=== PATIENT | female | born 1945 | race Caucasian/White ===

== ENCOUNTER 2017-06-27 12:24 | Emergency (ER) | payer MEDICARE, OTHER ==
[2017-06-27 12:37] VITALS: BP 176/89; RESP 16; TEMP 99; O2SAT 96
[2017-06-27] MEDS ORDERED: Albuterol-Ipratrop 3 mg / 0.5 (3 ml) UD IH STA (12:59)
--- NOTE | 2017-06-27 13:05 | ED PDOC ---
HPI: Chest Pain Time Seen by Provider: 06/27/17 12:44 Chief Complaint (Nursing): Chest Pain Chief Complaint (Provider): Chest Pain History Per: Patient History/Exam Limitations: no limitations Onset/Duration Of Symptoms: Days (x3) Current Symptoms Are (Timing): Still Present Additional Complaint(s): Vaishali Ruiz is a 72 year old female with a history of asthma that presents to the ED with a chief complaint of a productive cough with yellow sputum associated with shortness of breath and wheezing that he has been experiencing for the past three days. Patient additionally states that she has chest pain when coughing and had a subjective fever at home. Past Medical History Reviewed: Historical Data, Nursing Documentation, Vital Signs Vital Signs: Last Vital Signs Temp 99 F 06/27/17 12:37 Pulse 91 H 06/27/17 12:50 Resp 16 06/27/17 12:37 BP 176/89 H 06/27/17 12:37 Pulse Ox 96 06/27/17 13:10 - Medical History PMH: Asthma, Diabetes, HTN - Family History Family History: States: Hypertension - Home Medications Home Medications: Ambulatory Orders Medication Instructions Recorded Prednisolone 25 mg PO BID #100 tab 10/23/14 Albuterol HFA [Ventolin HFA 90 2 puff IH Q4H #1 puff 06/27/17 mcg/actuation (8 g)] Azithromycin [Zithromax] 250 mg PO DAILY #6 tab 06/27/17 Prednisone 50 mg PO DAILY #5 tab 06/27/17 - Allergies Allergies/Adverse Reactions: Allergies Allergy/AdvReac Type Severity Reaction Status Date / Time Penicillins Allergy RASH Verified 06/27/17 12:35 Review of Systems Constitutional: Positive for: Fever (subjective at home) Cardiovascular: Positive for: Chest Pain (when coughing) Respiratory: Positive for: Cough (productive of yellow sputum), Shortness of Breath, Wheezing Physical Exam - Reviewed Nursing Documentation Reviewed: Yes Vital Signs Reviewed: Yes - Physical Exam Appears: Positive for: Non-toxic, No Acute Distress Head Exam: Positive for: ATRAUMATIC, NORMOCEPHALIC Skin: Positive for: Normal Color, Warm Eye Exam: Positive for: Normal appearance, EOMI, PERRL Cardiovascular/Chest: Positive for: Regular Rate, Rhythm. Negative for: Murmur Respiratory: Positive for: Rhonchi (b/l), Wheezing (Expiratory wheezing b/l). Negative for: Normal Breath Sounds, Respiratory Distress Gastrointestinal/Abdominal: Positive for: Normal Exam, Soft. Negative for: Tenderness Extremity: Positive for: Normal ROM. Negative for: Tenderness, Swelling Neurologic/Psych: Positive for: Alert, Oriented. Negative for: Motor/Sensory Deficits - ECG O2 Sat by Pulse Oximetry: 96 (RA) Pulse Ox Interpretation: Normal Medical Decision Making Medical Decision Making: Impression: Chest Pain with productive cough Plan: * Chest X-Ray * Duoneb 3 ml INH * Prednisone 20 mg PO * Flu Swab * Reevaluation Scribe Attestation: Documented by Tia Lubin, acting as a scribe for Benja Lawler MD. Provider Scribe Attestation: All medical record entries made by the Scribe were at my direction and personally dictated by me. I have reviewed the chart and agree that the record accurately reflects my personal performance of the history, physical exam, medical decision making, and the department course for this patient. I have also personally directed, reviewed, and agree with the discharge instructions and disposition. Disposition - Clinical Impression Clinical Impression: Bronchitis - Patient ED Disposition Is Patient to be Admitted: No Counseled Patient/Family Regarding: Studies Performed, Diagnosis, Need For Followup, Rx Given - Disposition Referrals: [facility] [Outside] Disposition: Routine/Home Disposition Time: 14:43 Condition: FAIR Prescriptions: Albuterol HFA [Ventolin HFA 90 mcg/actuation (8 g)] 2 puff IH Q4H #1 puff Azithromycin [Zithromax] 250 mg PO DAILY #6 tab Prednisone 50 mg PO DAILY #5 tab Instructions: Acute Bronchitis (ED) Forms: [employer] (Polish)
[2017-06-27] MEDS ORDERED: Albuterol-Ipratrop 3 mg / 0.5 (3 ml) UD ONE (13:26)
[2017-06-27 13:36] VITALS: PULSE 91
--- NOTE | 2017-06-27 14:42 | RAD ---
HISTORY: cough COMPARISON: No prior. TECHNIQUE: Chest PA and lateral FINDINGS: LUNGS: Low lung volumes. Right basilar atelectasis. PLEURA: No significant pleural effusion identified. No pneumothorax apparent. CARDIOVASCULAR: Atherosclerotic aortic calcifications. Cardiomediastinal silhouette otherwise unremarkable OSSEOUS STRUCTURES: Marked thoracolumbar levoscoliosis. Degenerative changes. VISUALIZED UPPER ABDOMEN: Normal. OTHER FINDINGS: None. IMPRESSION: Low lung volumes. Right basilar atelectasis versus infiltrate.
--- NOTE | 2017-06-28 09:27 | CARD ---
APPROVED REPORT EKG Measurement Heart [id number] <Conclusion> Normal sinus rhythm Normal ECG
== END 2017-06-27 15:00 | disposition home or self-care (01) ==
LOC: H.ER 12:24
DX: J40 Bronchitis, not specified as acute or chronic (principal); J45.909 Unspecified asthma, uncomplicated; E11.9 Type 2 diabetes mellitus without complications; I10 Essential (primary) hypertension; Z88.0 Allergy status to penicillin